=== PATIENT | female | born 1940 | race Caucasian/White ===

== ENCOUNTER 2019-05-07 21:35 | Emergency (ER) | payer MEDICARE, OTHER ==
[~2019-05-07] VITALS: Ht 165.1 cm; Wt 90.0 kg
[~2019-05-07 21:35] MED LIST: NITR100C6 PO; RANI-366 PO
[2019-05-07] MEDS ORDERED: normal saline 1000ML IV soln IV ONE (21:55)
[2019-05-07 22:09] LABS: BASOPHILS # (AUTO) 0.1 X10'3 (0-0.2); BASOPHILS % (AUTO) 0.7 % (0-1); EOSINOPHILS % (AUTO) 0.1 % (0-6); HEMATOCRIT 32.3 % (35.0-45.0); HEMOGLOBIN 10.5 g/dl (12.0-16.0); LYMPHOCYTES # (AUTO) 0.5 X10'3 (1.1-4.8); LYMPHOCYTES % (AUTO) 6.8 % (21-51); MEAN CORPUSCULAR HEMOGLOBIN 20.6 PG (27.0-31.0); MEAN CORPUSCULAR HGB CONC 32.6 g/dL (33.0-36.5); MEAN CORPUSCULAR VOLUME 63.1 FL (78-98); MONOCYTES # (AUTO) 1.8 X10'3 (0-0.9); MONOCYTES % (AUTO) 22.9 % (2-12); NEUTROPHILS # (AUTO) 5.3 X10'3 (1.8-7.7); NEUTROPHILS % (AUTO) 69.5 % (42-75); PLATELET COUNT 175 X10'3 (140-440); RED BLOOD COUNT 5.11 X10'6 (4.20-5.60); RED CELL DISTRIBUTION WIDTH 15.6 % (11.5-14.5); WHITE BLOOD COUNT 7.7 X10'3 (4.5-11.0)
[2019-05-07 22:21] LABS: ALANINE AMINOTRANSFERASE 21 U/L (12-78); ALBUMIN 2.8 G/DL (3.4-5.0); ALBUMIN/GLOBULIN RATIO 0.7 (1.1-1.5); ALKALINE PHOSPHATASE 44 IU/L (46-116); ANION GAP 7 (8-16); ASPARTATE AMINO TRANSFERASE 18 U/L (10-37); BILIRUBIN,TOTAL 0.8 MG/DL (0.1-1.0); BLOOD UREA NITROGEN 19 MG/DL (7-18); BUN/CREATININE RATIO 17.9 (6.6-38.0); CALCIUM 8.3 MG/DL (8.5-10.1); CHLORIDE 96 MMOL/L (99-107); CREATININE 1.06 MG/DL (0.40-0.90); GLUCOSE 125 MG/DL (70-104); MAGNESIUM 2.2 MG/DL (1.5-2.4); PARTIAL THROMBOPLASTIN TIME 29 SECONDS (22-32); POTASSIUM 3.5 MMOL/L (3.5-5.1); SODIUM 130 MMOL/L (135-145); TOTAL CARBON DIOXIDE 26.9 MMOL/L (24-32); TOTAL PROTEIN 6.7 G/DL (6.4-8.2); eGFR 50 ML/MIN
--- NOTE | 2019-05-07 22:47 | NUR ---
DAUGHTER IN LAW ELIOT, AND SON SINDHU ANAYA [phone] [place] [phone]
[2019-05-07] MEDS ORDERED: levoFLOXACIN 750MG TABLET PO ONE (22:55)
[2019-05-07] MEDS ORDERED: LEVO750T21 PO (22:56)
[2019-05-07 23:30] LABS: TOTAL CELLS COUNTED 100
[2019-05-07 23:31] LABS: PLATELET ESTIMATE NORMAL
[2019-05-07 23:32] LABS: ANISOCYTOSIS 2+; ELLIPTOCYTES 1+; SCHISTOCYTES FEW
[2019-05-07 23:33] LABS: LARGE PLATELETS FEW; TEAR DROP CELLS FEW
[2019-05-07 23:39] LABS: CLARITY,URINE CLEAR (Clear); COLOR,URINE YELLOW (Yellow); GLUCOSE, URINE NEGATIVE (Neg); KETONES,URINE NEGATIVE (Neg); LEUKOCYTE ESTERASE ,URINE SMALL (Neg); NITRITES, URINE NEGATIVE (Neg); OCCULT BLOOD,URINE LARGE (Neg); PROTEIN,URINE TRACE mg/dl (Neg)
[2019-05-07 23:51] LABS: UA COLLECTION TYPE CLN CATCH MIDSTREAM
[2019-05-07 23:52] LABS: MUCUS STRANDS FEW /LPF (Neg)
[2019-05-07 23:53] LABS: BACTERIA,URINE 2+ /HPF (Neg); SQUAMOUS EPITHELIAL CELL,UR MODERATE /LPF (FEW); TRANSITIONAL EPI CELLS,URINE FEW /HPF; WBC,URINE 20-30 /HPF (0-4)
[2019-05-07 23:55] LABS: AMORPHOUS URATES 1+; FINE GRANULAR CAST 0-3 /LPF (NEGATIVE); HYALINE CASTS 0-3 /LPF (NEGATIVE)
[2019-05-08 00:25] LABS: MICROCYTOSIS 2+
[2019-05-08 01:17] VITALS: BP 131/80
== END 2019-05-08 01:18 | disposition home or self-care (01) ==
LOC: ER 21:36
DX: E86.0 Dehydration (principal); I10 Essential (primary) hypertension; Z90.710 Acquired absence of both cervix and uterus; Z88.0 Allergy status to penicillin; Z79.899 Other long term (current) drug therapy
CPT/HCPCS: 36415; 71045; 80053; 81001; 83605; 83735; 84145; 85025; 85610; 85730; 87040; 87088; 93005; 96360; 96361; 99284; J7030

== ENCOUNTER 2020-05-03 04:09 | Inpatient (IN) | payer MEDICARE, OTHER ==
[2020-05-03] VITALS (15 sets, daily range): BP systolic 108–137; BP diastolic 38–66
[~2020-05-03] VITALS: Ht 165.1 cm; Wt 89.1 kg
[2020-05-03] MEDS ORDERED: normal saline 1000ML IV soln IVB ONE (04:35)
[2020-05-03] MEDS ORDERED: ondansetron/PF 4mg/2ml inj IV ONE (04:35)
[2020-05-03] MEDS ORDERED: LORazepam 2 mg/ml vial IV ONE (04:35)
[2020-05-03] MEDS ORDERED: pantoprazole 40 MG vial IV ONE (04:35)
[2020-05-03 05:00] LABS: BASOPHILS % (AUTO) 0.3 % (0-1); EOSINOPHILS % (AUTO) 0 % (0-6); HEMATOCRIT 34.7 % (35.0-45.0); LYMPHOCYTES # (AUTO) 0.8 X10'3 (1.1-4.8); LYMPHOCYTES % (AUTO) 6.3 % (21-51); MEAN CORPUSCULAR HEMOGLOBIN 20.4 PG (27.0-31.0); MEAN CORPUSCULAR HGB CONC 31.6 g/dL (33.0-36.5); MEAN CORPUSCULAR VOLUME 64.7 FL (78-98); MEAN PLATELET VOLUME 9.2 FL (7.4-10.4); MONOCYTES # (AUTO) 0.7 X10'3 (0-0.9); MONOCYTES % (AUTO) 5.4 % (2-12); NEUTROPHILS # (AUTO) 11.2 X10'3 (1.8-7.7); PLATELET COUNT 213 X10'3 (140-440); RED BLOOD COUNT 5.37 X10'6 (4.20-5.60); RED CELL DISTRIBUTION WIDTH 16.2 % (11.5-14.5); WHITE BLOOD COUNT 12.8 X10'3 (4.5-11.0)
[2020-05-03 05:03] LABS: ALANINE AMINOTRANSFERASE 17 U/L (12-78); ALBUMIN 3.5 G/DL (3.4-5.0); ALKALINE PHOSPHATASE 54 IU/L (46-116); ANION GAP 9 (8-16); ASPARTATE AMINO TRANSFERASE 18 U/L (10-37); BILIRUBIN,TOTAL 0.9 MG/DL (0.1-1.0); BLOOD UREA NITROGEN 27 MG/DL (7-18); BUN/CREATININE RATIO 20.8 (6.6-38.0); CALCIUM 8.6 MG/DL (8.5-10.1); CHLORIDE 104 MMOL/L (99-107); GLUCOSE 136 MG/DL (70-104); LIPASE 64 U/L (73-393); POTASSIUM 3.8 MMOL/L (3.5-5.1); SODIUM 139 MMOL/L (135-145); TOTAL CARBON DIOXIDE 26.2 MMOL/L (24-32); TOTAL PROTEIN 6.9 G/DL (6.4-8.2); eGFR 39 ML/MIN
[2020-05-03 05:29] LABS: CLARITY,URINE CLEAR (Clear); COLOR,URINE YELLOW (Yellow); GLUCOSE, URINE NEGATIVE (Neg); KETONES,URINE 15 mg/dl (Neg); LEUKOCYTE ESTERASE ,URINE NEGATIVE (Neg); NITRITES, URINE NEGATIVE (Neg); OCCULT BLOOD,URINE NEGATIVE (Neg); PH,URINE 8.5 (4.8-8.0); PROTEIN,URINE NEGATIVE (Neg)
[2020-05-03 05:37] LABS: UA COLLECTION TYPE CLN CATCH MIDSTREAM
[2020-05-03 05:59] LABS: ANISOCYTOSIS 1+; HYPOCHROMASIA 1+; MICROCYTOSIS 2+; PLATELET ESTIMATE NORMAL
[2020-05-03 06:01] LABS: TARGET CELLS FEW; TEAR DROP CELLS 1+
--- NOTE | 2020-05-03 07:16 | NUR ---
US tech at bedside at this time.
--- NOTE | 2020-05-03 08:54 | NUR ---
Patient up to bedside commode at this time s/p soap suds enema per MD order. Patient had BM of liquid stool on bed herrera prior to getting up to commode.
[2020-05-03] MEDS ORDERED: metroNIDAZOLE-Flagyl 500mg/NS 100 ML IV ONE (09:45)
[2020-05-03] MEDS ORDERED: levoFLOXACIN-Levaquin 750MG/D5 150 ML IV ONE (09:45)
[2020-05-03] MEDS ORDERED: LISI1TAB32 PO (09:59)
[2020-05-03] MEDS ORDERED: LEVO100T9 PO (09:59)
[2020-05-03] MEDS ORDERED: LEVO-145 PO (09:59)
[2020-05-03] MEDS ORDERED: CLON-369 PO (09:59)
[2020-05-03] MEDS ORDERED: OSC500T PO (09:59)
--- NOTE | 2020-05-03 10:05 | NUR ---
Patient's lisinopril and enalapril collected and sent to pharmacy.
--- NOTE | 2020-05-03 10:23 | NUR ---
Patient up to commode and back to bed without difficulty.
[2020-05-03 10:44] LABS: PARTIAL THROMBOPLASTIN TIME 26 SECONDS (22-32)
[2020-05-03] MEDS ORDERED: acetaminophen 325mg tablet PO PRN (10:50)
[2020-05-03] MEDS ORDERED: magnesium 4gm in 100ml NS 100 ML IV PRN (10:50)
[2020-05-03] MEDS ORDERED: magnesium 2GM in 50ml NS 50 ML IV PRN (10:50)
[2020-05-03] MEDS ORDERED: morphine 2 MG/ML inj. syringe IV PRN ×2 (10:50→13:00)
[2020-05-03] MEDS ORDERED: magnesium hydroxide 30ml (MOM) UD suspension PO PRN (10:50)
[2020-05-03] MEDS ORDERED: ondansetron/PF 4mg/2ml inj IV PRN ×2 (10:50→13:00)
[2020-05-03] MEDS ORDERED: bisacodyl 10mg suppository rectal RC PRN (10:50)
[2020-05-03] MEDS ORDERED: potassium CL 10mEq/100ml bag 100 ML IV PRN ×2 (10:50)
[2020-05-03] MEDS ORDERED: magnesium Cl slow-release 64mg tablet PO PRN (10:50)
[2020-05-03] MEDS ORDERED: potassium Cl 20 mEq SR tablet PO PRN ×2 (10:50)
[2020-05-03] MEDS: normal saline 1000ml 1,000 ML IV SCH ×2 (11:56→16:18)
[2020-05-03] MEDS ORDERED: BUPIVAcaine/PF 2.5 mg/ml (0.25%) 30ml vial ONE (12:50)
[2020-05-03] MEDS ORDERED: ceFAZolin 1000mg inj ONE (12:50)
[2020-05-03] MEDS ORDERED: ringers solution, lacted 1,000 ML IV SCH (12:56)
[2020-05-03] MEDS ORDERED: morphine 4 MG/ML inj SYRINge IV PRN (13:00)
[2020-05-03] MEDS ORDERED: proCHLORperazine 10 MG/2 ml inj IV PRN (13:00)
[2020-05-03] MEDS ORDERED: meperidine/PF 25mg/ml syringe IV PRN ×2 (13:00)
[2020-05-03] MEDS ORDERED: propofol inj 20 ML IV ONE (13:02)
[2020-05-03] MEDS ORDERED: midazolam 2 mg/2 ml injection ONE (13:02)
[2020-05-03] MEDS ORDERED: fentaNYL/PF 50MCG/1 ML 2ML syringe ONE (13:02)
[2020-05-03] MEDS ORDERED: rocuronium 10mg/ml inj IV ONE (13:02)
[2020-05-03] MEDS ORDERED: sevoflurane 250ml liquid IH ONE (13:06)
[2020-05-03] MEDS ORDERED: ceFOXitin 2GM-NS 50mL ADDVANT. 50 ML IV ONE (13:18)
[2020-05-03] MEDS ORDERED: dexamethasone sod phosphate 4mg/ml inj. ONE (14:11)
[2020-05-03] MEDS ORDERED: ondansetron/PF 4mg/2ml inj ONE (14:11)
[2020-05-03] MEDS ORDERED: HYDROcodone/acetaminophen 10/325mg tab PO PRN (14:20)
[2020-05-03] MEDS ORDERED: neostigmine methylsulfate 1 MG/ML 10ml vial ONE (14:24)
[2020-05-03] MEDS ORDERED: glycopyrrolate 0.2mg/ml inj ONE (14:24)
--- NOTE | 2020-05-03 14:36 | NUR ---
Received from OR via , accompanied by Anesthesiologist DR AMARO and report given by Anesthesiolgist. AWAKENS TO VOICE. VITALS STABLE. DRESSINGS DI. LANI PAIN. DEMETRIUS TO ABD WITH SM AMNT SERO SANG IN BULB.
[2020-05-03] MEDS: meperidine/PF 25mg/ml syringe IV PRN ×3 (14:47→15:27)
[2020-05-03] MEDS ORDERED: acetaminophen 1,000mg/100ml IV 100 ML IV ONE (14:50)
[2020-05-03] MEDS ORDERED: clonazePAM 0.5mg tablet PO PRN (15:30)
[2020-05-03] MEDS: levoTHYROXINE 100mcg tablet PO SCH (15:30)
--- NOTE | 2020-05-03 15:36 | NUR ---
Report called to receiving nurse. Transferred via [facility] . Special Issues communicated to receiving nurse. AWAKE AND ORIENTED. VITALS STABLE. DRESSINGS DI. LANI PAIN . TO SURGICAL RM 354C AT THIS TIME.
[2020-05-03] MEDS: metroNIDAZOLE-Flagyl 500mg/NS 100 ML IV SCH (16:17)
--- NOTE | 2020-05-03 18:03 | NUR ---
Problems reprioritized. Patient report given, questions answered & plan of care reviewed with YEVGENIY Padilla.
[2020-05-03] MEDS: K and/or MAG REPLACEMENT MC SCH (20:00)
[2020-05-03] MEDS: docusate sod 100mg capsule PO SCH (20:22)
[2020-05-04] VITALS: BP 122/50
[2020-05-04] MEDS: metroNIDAZOLE-Flagyl 500mg/NS 100 ML IV SCH ×2 (00:29→08:01)
[2020-05-04 03:24] VITALS: BP 112/38
[2020-05-04 06:12] LABS: BASOPHILS % (AUTO) 0 % (0-1); EOSINOPHILS % (AUTO) 0 % (0-6); HEMOGLOBIN 10.7 g/dl (12.0-16.0); LYMPHOCYTES # (AUTO) 0.6 X10'3 (1.1-4.8); MEAN CORPUSCULAR HEMOGLOBIN 20.7 PG (27.0-31.0); MEAN CORPUSCULAR HGB CONC 31.5 g/dL (33.0-36.5); MEAN CORPUSCULAR VOLUME 65.7 FL (78-98); MEAN PLATELET VOLUME 9.5 FL (7.4-10.4); MONOCYTES # (AUTO) 0.8 X10'3 (0-0.9); MONOCYTES % (AUTO) 7.1 % (2-12); NEUTROPHILS # (AUTO) 9.3 X10'3 (1.8-7.7); NEUTROPHILS % (AUTO) 86.9 % (42-75); PLATELET COUNT 197 X10'3 (140-440); RED BLOOD COUNT 5.18 X10'6 (4.20-5.60); RED CELL DISTRIBUTION WIDTH 16.9 % (11.5-14.5); WHITE BLOOD COUNT 10.7 X10'3 (4.5-11.0)
[2020-05-04 06:18] LABS: ALBUMIN 2.9 G/DL (3.4-5.0); ANION GAP 6 (8-16); BLOOD UREA NITROGEN 14 MG/DL (7-18); BUN/CREATININE RATIO 13.9 (6.6-38.0); CALCIUM 8.1 MG/DL (8.5-10.1); CHLORIDE 110 MMOL/L (99-107); CREATININE 1.01 MG/DL (0.40-0.90); GLUCOSE 131 MG/DL (70-104); MAGNESIUM 2.5 MG/DL (1.5-2.4); POTASSIUM 4.4 MMOL/L (3.5-5.1); SODIUM 142 MMOL/L (135-145); TOTAL CARBON DIOXIDE 25.7 MMOL/L (24-32); eGFR 53 ML/MIN
--- NOTE | 2020-05-04 06:26 | NUR ---
Problems reprioritized. Patient report given, questions answered & plan of care reviewed with ELAINA. Addendum: 05/04/20 at 0627 by Honorio Johnson RN Amended: Links added.
--- NOTE | 2020-05-04 06:28 | NUR ---
Patient in room [facility]. I have received report from YEVGENIY Padilla and had the opportunity to ask questions and assume patient care.
[2020-05-04] MEDS: K and/or MAG REPLACEMENT MC SCH ×2 (06:52→19:34)
[2020-05-04 07:19] VITALS: BP 134/51
[2020-05-04] MEDS: famotidine 20mg tablet PO SCH (08:01)
[2020-05-04] MEDS: docusate sod 100mg capsule PO SCH ×2 (08:01→19:41)
[2020-05-04] MEDS: levoTHYROXINE 100mcg tablet PO SCH (08:01)
[2020-05-04] MEDS: calcium carbonate 500mg tablet PO SCH (08:02)
[2020-05-04] MEDS: HYDROchlorothiazide 12.5mg capsule PO SCH (08:02)
[2020-05-04] MEDS: lisinopril 10 MG tablet PO SCH (08:02)
[2020-05-04 09:17] LABS: ANISOCYTOSIS 1+; MICROCYTOSIS 2+; PLATELET ESTIMATE NORMAL
[2020-05-04 09:18] LABS: ELLIPTOCYTES FEW
--- NOTE | 2020-05-04 10:46 | NUR ---
Student documentation: I have reviewed and agree with all interventions, assessments performed and documented by Josef, nursing program director.
--- NOTE | 2020-05-04 10:47 | NUR ---
Student Medication Administration: For this medication-pass time frame, all medication were reviewed, dispensed, administered and documented per hospital policy by Josef, nursing teacher.
[2020-05-04 11:24] VITALS: BP 122/49
--- NOTE | 2020-05-04 15:28 | NUR ---
D/C'd surgical drain per Dr. Narayan's order. Patient tolerated well. Drain replaced with gauze and foam tape.
[2020-05-04] MEDS: metroNIDAZOLE 500mg tablet PO SCH (16:07)
--- NOTE | 2020-05-04 18:21 | NUR ---
Problems reprioritized. Patient report given, questions answered & plan of care reviewed with YEVGENIY Mandujano.
[2020-05-04] MEDS: magnesium hydroxide 30ml (MOM) UD suspension PO SCH (19:41)
[2020-05-04 20:00] VITALS: BP 138/72
[2020-05-05] VITALS: BP 116/42
[2020-05-05] MEDS: metroNIDAZOLE 500mg tablet PO SCH ×2 (00:09→07:37)
[2020-05-05 05:44] LABS: BASOPHILS % (AUTO) 0.4 % (0-1); EOSINOPHILS # (AUTO) 0.1 X10'3 (0-0.9); EOSINOPHILS % (AUTO) 0.7 % (0-6); HEMATOCRIT 31.7 % (35.0-45.0); LYMPHOCYTES # (AUTO) 1.4 X10'3 (1.1-4.8); LYMPHOCYTES % (AUTO) 14.5 % (21-51); MEAN CORPUSCULAR HEMOGLOBIN 20.8 PG (27.0-31.0); MEAN CORPUSCULAR HGB CONC 31.5 g/dL (33.0-36.5); MEAN CORPUSCULAR VOLUME 66.1 FL (78-98); MEAN PLATELET VOLUME 9.3 FL (7.4-10.4); MONOCYTES # (AUTO) 1.1 X10'3 (0-0.9); MONOCYTES % (AUTO) 11.1 % (2-12); NEUTROPHILS # (AUTO) 7.1 X10'3 (1.8-7.7); NEUTROPHILS % (AUTO) 73.3 % (42-75); PLATELET COUNT 170 X10'3 (140-440); RED CELL DISTRIBUTION WIDTH 16.6 % (11.5-14.5); WHITE BLOOD COUNT 9.7 X10'3 (4.5-11.0)
[2020-05-05 06:14] LABS: ALANINE AMINOTRANSFERASE 48 U/L (12-78); ALBUMIN 2.9 G/DL (3.4-5.0); ALKALINE PHOSPHATASE 47 IU/L (46-116); ANION GAP 9 (8-16); ASPARTATE AMINO TRANSFERASE 48 U/L (10-37); BILIRUBIN,TOTAL 0.7 MG/DL (0.1-1.0); BLOOD UREA NITROGEN 16 MG/DL (7-18); BUN/CREATININE RATIO 15.8 (6.6-38.0); CALCIUM 8.5 MG/DL (8.5-10.1); CHLORIDE 109 MMOL/L (99-107); CREATININE 1.01 MG/DL (0.40-0.90); GLUCOSE 89 MG/DL (70-104); MAGNESIUM 2.5 MG/DL (1.5-2.4); POTASSIUM 4.4 MMOL/L (3.5-5.1); SODIUM 142 MMOL/L (135-145); TOTAL CARBON DIOXIDE 24.5 MMOL/L (24-32); TOTAL PROTEIN 5.9 G/DL (6.4-8.2); eGFR 53 ML/MIN
--- NOTE | 2020-05-05 06:24 | NUR ---
Problems reprioritized. Patient report given, questions answered & plan of care reviewed with Hellen VUONG.
--- NOTE | 2020-05-05 06:27 | NUR ---
Patient in room [facility]. I have received report from YEVGENIY Mandujano and had the opportunity to ask questions and assume patient care.
[2020-05-05] MEDS: K and/or MAG REPLACEMENT MC SCH (06:38)
[2020-05-05] MEDS: calcium carbonate 500mg tablet PO SCH (07:35)
[2020-05-05] MEDS: docusate sod 100mg capsule PO SCH (07:37)
[2020-05-05] MEDS: lisinopril 10 MG tablet PO SCH (07:37)
[2020-05-05] MEDS: HYDROchlorothiazide 12.5mg capsule PO SCH (07:37)
[2020-05-05] MEDS: famotidine 20mg tablet PO SCH (07:37)
[2020-05-05] MEDS: levoTHYROXINE 100mcg tablet PO SCH (07:37)
[2020-05-05] MEDS: magnesium hydroxide 30ml (MOM) UD suspension PO SCH (07:39)
[2020-05-05] MEDS ORDERED: levoFLOXACIN-Levaquin 750MG/D5 150 ML IV SCH (08:00)
[2020-05-05 08:53] VITALS: BP 153/62
[2020-05-05] MEDS ORDERED: LEVO500T2 PO (10:18)
[2020-05-05] MEDS ORDERED: METR500T PO (10:18)
[2020-05-05] MEDS: normal saline 1000ml 1,000 ML IV SCH (10:49)
[2020-05-05 10:52] LABS: ANISOCYTOSIS 1+; MICROCYTOSIS 2+; PLATELET ESTIMATE NORMAL
[2020-05-05 11:00] VITALS: BP 128/49
--- NOTE | 2020-05-05 14:05 | NUR ---
Patient discharged home and taken from unit via wheelchair with x1 staff. Patient PIV removed with cannula intact. Patient alert, oriented and in no apparent distress at time of discharge. Discharge instructions discussed with patient and also spoke with daughter about the new medications and when to start them. Patient was encouraged to follow up with PCP in 1 week and also with Dr. Narayan. Dr. Narayan office number provided to the patient. Discharge instructions included how to care for lap and Earnest sites. Patient given information about low-fat diet as well. Patient stated an understanding of these instructions. Patient took all belongings with her. patient was educated about new medications (antibiotics) and these were called into [facility] in [place] per patient request.
== END 2020-05-05 14:07 | disposition home or self-care (01) | DRG 417 ==
LOC: ER 04:10 → ED HOLD 10:49 → SUR 3N 15:48
PROVIDERS: ADMIT Internal Medicine; ATTEND Internal Medicine
PROC: 0FT44ZZ Resection of Gallbladder, Percutaneous Endoscopic Approach (ICD-10-PCS; principal; 2020-05-03 13:06)
DX: K80.00 Calculus of gallbladder with acute cholecystitis without obstruction (principal); N17.0 Acute kidney failure with tubular necrosis; I10 Essential (primary) hypertension; E11.9 Type 2 diabetes mellitus without complications; E66.9 Obesity, unspecified; G47.30 Sleep apnea, unspecified; E03.9 Hypothyroidism, unspecified; F41.9 Anxiety disorder, unspecified; K59.00 Constipation, unspecified; K21.9 Gastro-esophageal reflux disease without esophagitis; Z90.710 Acquired absence of both cervix and uterus; Z68.32 Body mass index [BMI] 32.0-32.9, adult; Z88.0 Allergy status to penicillin; Z79.899 Other long term (current) drug therapy; Z79.890 Hormone replacement therapy
CPT/HCPCS: 36415; 74176; 76700; 80048; 80053; 81003; 82948; 83690; 83735; 84443; 85025; 85610; 85730; 86885; 86900; 86901; 87081; 88304; 96361; 96365; 96375; 99285; A4215; A4618; A6402; A7000; C9113; G0378; J0131; J0690; J0694; J1100; J1956; J2060; J2175; J2250; J2405; J2704; J2710; J3010; J3490; J7030; J7120

== ENCOUNTER 2022-02-15 01:39 | Emergency (ER) | payer MEDICARE, OTHER ==
[~2022-02-15] VITALS: Ht 167.6 cm; Wt 85.9 kg
[~2022-02-15 01:39] MED LIST changes: +CLON-369 PO; +LEVO-145 PO; +LISI1TAB49 PO; +METR500T PO; -NITR100C6 PO; +OSC500T PO
--- NOTE | 2022-02-15 02:00 | NUR ---
patient at this time is having pain located near the breast bone 07/05, patient moaning in pain. pain comes and goes
[2022-02-15] MEDS ORDERED: mag hydrox/Alum hydrox/simeth 30ml oral suspension PO ONE (02:15)
[2022-02-15] MEDS ORDERED: LIDOcaine Viscous 15ml cup MM ONE (02:15)
[2022-02-15] MEDS ORDERED: pantoprazole 40mg Tablet.DR PO ONE (02:15)
[2022-02-15] MEDS ORDERED: famotidine 20mg tablet PO ONE (02:15)
[2022-02-15] MEDS ORDERED: ondansetron 4mg rapidly disintigrating tab PO ONE (02:15)
[2022-02-15 02:41] LABS: BASOPHILS # (AUTO) 0.1 X10'3 (0-0.2); BASOPHILS % (AUTO) 0.4 % (0-1); EOSINOPHILS # (AUTO) 0.1 X10'3 (0-0.9); EOSINOPHILS % (AUTO) 0.5 % (0-6); HEMATOCRIT 32.5 % (35.0-45.0); HEMOGLOBIN 10.4 g/dl (12.0-16.0); LYMPHOCYTES # (AUTO) 0.7 X10'3 (1.1-4.8); LYMPHOCYTES % (AUTO) 5.7 % (21-51); MEAN CORPUSCULAR HEMOGLOBIN 20.7 PG (27.0-31.0); MEAN CORPUSCULAR VOLUME 64.7 FL (78-98); MEAN PLATELET VOLUME 8.9 FL (7.4-10.4); MONOCYTES % (AUTO) 8.6 % (2-12); NEUTROPHILS # (AUTO) 10.1 X10'3 (1.8-7.7); NEUTROPHILS % (AUTO) 84.8 % (42-75); PLATELET COUNT 171 X10'3 (140-440); RED BLOOD COUNT 5.02 X10'6 (4.20-5.60); RED CELL DISTRIBUTION WIDTH 15.5 % (11.5-14.5); WHITE BLOOD COUNT 11.9 X10'3 (4.5-11.0)
--- NOTE | 2022-02-15 02:51 | NUR ---
PATIENT NOTED TO DE-SAT WHILE SHE IS SLEEPING. SHE WASPLACED ON OXYGEN
--- NOTE | 2022-02-15 02:52 | NUR ---
CHEST XRAY A BEDSIDE
--- NOTE | 2022-02-15 02:53 | NUR ---
PATIENT STATES THAT SHE HAS SLEEP APNEA AND SLEEP WITH A CPAP MACHINE
[2022-02-15 02:56] LABS: ALANINE AMINOTRANSFERASE 81 U/L (12-78); ALBUMIN 3.2 G/DL (3.4-5.0); ALKALINE PHOSPHATASE 79 IU/L (46-116); ANION GAP 14 (8-16); ASPARTATE AMINO TRANSFERASE 152 U/L (10-37); BLOOD UREA NITROGEN 31 MG/DL (7-18); CALCIUM 8.6 MG/DL (8.5-10.1); CHLORIDE 105 MMOL/L (99-107); GLUCOSE 121 MG/DL (70-104); POTASSIUM 3.8 MMOL/L (3.5-5.1); SODIUM 143 MMOL/L (135-145); TOTAL CARBON DIOXIDE 24.1 MMOL/L (24-32); TOTAL PROTEIN 6.5 G/DL (6.4-8.2); eGFR 53 ML/MIN
[2022-02-15 03:00] LABS: LIPASE 192 U/L (73-393)
[2022-02-15] MEDS ORDERED: PANT20TA18 PO ×2 (03:26→03:27)
[2022-02-15] MEDS ORDERED: ONDA-103 PO ×2 (03:26→03:27)
--- NOTE | 2022-02-15 03:30 | NUR ---
PATIENT IS CALLING HER DAUGHTER TO PICK HER UP
[2022-02-15 03:52] VITALS: BP 121/50
[2022-02-15 04:12] LABS: ANISOCYTOSIS FEW; BURR CELLS FEW; ELLIPTOCYTES FEW; MICROCYTOSIS 2+; PLATELET ESTIMATE NORMAL
== END 2022-02-15 03:55 | disposition home or self-care (01) ==
LOC: ER 01:40
DX: R10.13 Epigastric pain (principal); R05.9 Cough, unspecified; R53.1 Weakness; K21.9 Gastro-esophageal reflux disease without esophagitis; I10 Essential (primary) hypertension; Z87.440 Personal history of urinary (tract) infections; Z90.710 Acquired absence of both cervix and uterus; Z72.89 Other problems related to lifestyle; Z88.0 Allergy status to penicillin; Z79.2 Long term (current) use of antibiotics; Z79.899 Other long term (current) drug therapy
CPT/HCPCS: 36415; 71045; 80053; 83690; 84484; 85008; 85025; 93005; 99285

== ENCOUNTER 2022-04-06 07:18 | Emergency (ER) | payer MEDICARE, OTHER ==
[~2022-04-06] VITALS: Ht 167.6 cm; Wt 86.4 kg
[~2022-04-06 07:18] MED LIST changes: +ONDA-103 PO; +PANT20TA18 PO
[2022-04-06 08:20] LABS: BASOPHILS % (AUTO) 0.4 % (0-1); EOSINOPHILS % (AUTO) 0.1 % (0-6); HEMATOCRIT 34.3 % (35.0-45.0); LYMPHOCYTES # (AUTO) 0.4 X10'3 (1.1-4.8); LYMPHOCYTES % (AUTO) 5.7 % (21-51); MEAN CORPUSCULAR HEMOGLOBIN 20.7 PG (27.0-31.0); MEAN CORPUSCULAR HGB CONC 32.2 g/dL (33.0-36.5); MEAN CORPUSCULAR VOLUME 64.4 FL (78-98); MEAN PLATELET VOLUME 9.4 FL (7.4-10.4); MONOCYTES % (AUTO) 15.2 % (2-12); NEUTROPHILS # (AUTO) 5.3 X10'3 (1.8-7.7); NEUTROPHILS % (AUTO) 78.6 % (42-75); PLATELET COUNT 172 X10'3 (140-440); RED BLOOD COUNT 5.32 X10'6 (4.20-5.60); RED CELL DISTRIBUTION WIDTH 15.7 % (11.5-14.5); WHITE BLOOD COUNT 6.8 X10'3 (4.5-11.0)
--- NOTE | 2022-04-06 08:32 | NUR ---
DR. BERUMEN ASKED WHAT WOUND CARE SHOULD BE PROVIDED TO [place]. ORDERED LIDOCAINE PATCHES TO BE APPLIED DIRECTLY TO [facility], INCLUDING OVER BLISTERED SPOT.
[2022-04-06 08:42] LABS: ALANINE AMINOTRANSFERASE 21 U/L (12-78); ALBUMIN 3.3 G/DL (3.4-5.0); ALKALINE PHOSPHATASE 47 IU/L (46-116); ANION GAP 11 (8-16); ASPARTATE AMINO TRANSFERASE 23 U/L (10-37); BILIRUBIN,TOTAL 0.7 MG/DL (0.1-1.0); BLOOD UREA NITROGEN 26 MG/DL (7-18); BUN/CREATININE RATIO 22.8 (6.6-38.0); CALCIUM 8.2 MG/DL (8.5-10.1); CHLORIDE 103 MMOL/L (99-107); CREATININE 1.14 MG/DL (0.40-0.90); GLUCOSE 109 MG/DL (70-104); MAGNESIUM 2.2 MG/DL (1.5-2.4); POTASSIUM 3.5 MMOL/L (3.5-5.1); SODIUM 140 MMOL/L (135-145); TOTAL CARBON DIOXIDE 26.1 MMOL/L (24-32); TOTAL PROTEIN 6.7 G/DL (6.4-8.2); eGFR 46 ML/MIN
[2022-04-06 08:54] LABS: HYPOCHROMASIA 1+; MICROCYTOSIS 2+; NUCLEATED RED BLOOD CELLS 1 /100WBC (0-0); PLATELET ESTIMATE NORMAL; TOTAL CELLS COUNTED 100
[2022-04-06 08:55] LABS: ELLIPTOCYTES 1+
[2022-04-06 12:27] VITALS: BP 109/57
[2022-04-06] MEDS ORDERED: ACET-3068 PO ×2 (13:48→13:51)
[2022-04-06] MEDS ORDERED: LIDO700A32 TOP ×2 (13:48→13:51)
[2022-04-07] MEDS ORDERED: LIDOcaine 5% patch TP ONE (08:00)
== END 2022-04-06 12:28 | disposition home or self-care (01) ==
LOC: ER 07:18
DX: T21.15XA Burn of first degree of buttock, initial encounter (principal); R42 Dizziness and giddiness; R55 Syncope and collapse; I10 Essential (primary) hypertension; Z87.440 Personal history of urinary (tract) infections; Z90.710 Acquired absence of both cervix and uterus; Z72.89 Other problems related to lifestyle; Z88.0 Allergy status to penicillin; Z79.899 Other long term (current) drug therapy; W18.2XXA Fall in (into) shower or empty bathtub, initial encounter; Y93.89 Activity, other specified; Y92.89 Other specified places as the place of occurrence of the external cause; Y99.8 Other external cause status
CPT/HCPCS: 36415; 80053; 83735; 84484; 85007; 85025; 93005; 99284